=== PATIENT | female | born 1990 | race Caucasian/White ===

== ENCOUNTER 2017-01-01 19:26 | Inpatient (IN) | payer OTHER ==
[2017-01-01] MEDS ORDERED: METHYLERGONOVINE 0.2 MG/ML 1 ML AMP IM PRN (19:50)
[2017-01-01] MEDS ORDERED: LIDOCAINE 1% (PF) 10 MG/ML (30 ML SDV) SQ PRN (19:50)
[2017-01-01] MEDS ORDERED: TERBUTALINE 1 MG/ML VIAL SQ PRN (19:50)
[2017-01-01] MEDS ORDERED: OXYTOCIN 10 UNIT/ML 1 ML VIAL IM PRN (19:50)
[2017-01-01] MEDS ORDERED: CARBOPROST TROMETHAMINE 250 MCG/ML 1 ML AMP IM PRN (19:50)
[2017-01-01] MEDS: LACTATED RINGERS 1,000 ML IV SCH ×3 (20:15→21:31)
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
[2017-01-01 20:34] LABS: Basophils # (A) 0.1 k/uL (0-0.2); Basophils % (A) 0 %; CH 31.6; CHCM 34.5; Eosinophils # (A) 0.1 k/uL (0-0.7); Eosinophils % (A) 1 %; HCT 41.7 % (34.0-46.0); HDW 3.01; HGB 13.7 gm/dL (11.4-16.0); Luc # (Auto) 0.21; Luc % (Auto) 1; Lymphocytes # (A) 1.8 k/uL (1.0-4.8); Lymphocytes % (A) 9 %; MCH 30.3 pg (25.0-35.0); MCHC 32.8 g/dL (31.0-37.0); MCV 92.2 fL (80.0-100.0); Mean Platelet Volume 8.8; Monocytes # (A) 0.9 k/uL (0-1.0); Monocytes % (A) 4 %; Neutrophils # (A) 16.3 k/uL (1.3-7.7); Neutrophils % (A) 84 %; RBC 4.53 m/uL (3.80-5.40); RDW 14.1 % (11.5-15.5); WBC 19.4 k/uL (3.8-10.6); WBC (Perox) 19.72
[2017-01-01] MEDS ORDERED: fentaNYL (PF) 50 MCG/ML 5 ML AMP ONE (20:41)
[2017-01-01] MEDS ORDERED: BUPIVACAINE (PF) 0.25% 30 ML VIAL ONE (20:41)
[2017-01-01] MEDS ORDERED: SODIUM CHLORIDE 0.9% 100 ML BAG ONE (20:41)
[2017-01-01 20:43] VITALS: BMI 31.4
[2017-01-01] MEDS ORDERED: BUPIVACAINE (PF) 0.25% 25 ML, fentaNYL (PF) 200 MCG in SODIUM CHLORIDE 0.9% 71 ML EPIDURAL ONE (21:10)
--- NOTE | 2017-01-02 03:04 | P.PROBDLV ---
Vaginal Delivery Note - . Vaginal Delivery Note: The patient slowly progressed to complete dilation. She did receive epidural anesthesia while in labor. Again with artificial rupture membranes, meconium fluid was noted. HEAD CLEANING PORTER was called to delivery. When she reached complete dilation, the 's head delivered across the perineum followed by the anterior shoulder and then she was instructed to stop pushing. Nose and mouth were bulb suctioned at the perineum and then with one further push the remainder the easily delivered and was placed on mother's abdomen. Cord was clamped and cut immediately and was taken to warmer for evaluation. He was assessed immediately by special care nursing staff and brought to special care nursery for further evaluation due to pale color. He was making some efforts to cry at that time. A viable male infant is noted with scores of 7 at 1 minute 7 at 5 minutes and 8 at 10 minutes. Infant weight is 6 pounds 13.3 ounces. Placenta delivered shortly thereafter, intact, with a three -vessel cord. Bladder was drained with a straight cath. Uterus did slowly contract down after oxytocin was given and uterine massage was carried out. Several clots were removed with a gloved hand. Inspection of the perineum revealed a small secondary perineal laceration. This area was anesthetized with 1% lidocaine and then sutured with 3-0 Vicryl suture in a running locked fashion. There were noted to be bilateral periurethral abrasions that were noted to be hemostatic. Estimated blood loss is approximately 200 mL's. Mother is in stable condition and baby is in the nursery being evaluated at this time.
[2017-01-02] MEDS ORDERED: ZOLPIDEM 5 MG TAB PO PRN (03:14)
[2017-01-02] MEDS ORDERED: HYDROCORTISONE 2.5% RECTAL CREAM 30 GM TUBE RECTAL PRN (03:14)
[2017-01-02] MEDS ORDERED: diphenhydrAMINE 50 MG/ML 1 ML VIAL IVP PRN ×2 (03:14)
[2017-01-02] MEDS ORDERED: ACETAMINOPHEN TAB 325 MG TAB PO PRN (03:14)
[2017-01-02] MEDS ORDERED: BENZOCAINE/MENTHOL SPRAY 1 GM/SPRAY AEROSOL TOPICAL PRN (03:14)
[2017-01-02] MEDS ORDERED: Acetaminophen-Codeine 300-30mg TAB PO PRN ×2 (03:14)
[2017-01-02] MEDS ORDERED: LANOLIN CREAM 5 GM TUBE TOPICAL PRN (03:14)
[2017-01-02] MEDS ORDERED: OXYTOCIN 30 UNITS/500 ML NS 30 UNIT in SALINE 1 500ML.BAG IV SCH (03:14)
[2017-01-02] MEDS ORDERED: WITCH HAZEL 1 EACH MED..PAD TOPICAL PRN (03:14)
[2017-01-02] MEDS ORDERED: SIMETHICONE 80 MG CHEWABLE PO PRN (03:14)
[2017-01-02] MEDS ORDERED: diphenhydrAMINE 50 MG CAP PO PRN (03:14)
[2017-01-02] MEDS ORDERED: diphenhydrAMINE 25 MG CAP PO PRN (03:14)
[2017-01-02] MEDS: IBUPROFEN 600 MG TAB PO PRN ×3 (03:33→20:29)
[2017-01-02 07:15] LABS: Basophils % (A) 0 %; CH 31.5; Eosinophils % (A) 0 %; HDW 2.92; Luc # (Auto) 0.27; Luc % (Auto) 1; Lymphocytes # (A) 1.1 k/uL (1.0-4.8); Lymphocytes % (A) 5 %; MCH 31.1 pg (25.0-35.0); MCHC 33.4 g/dL (31.0-37.0); MCV 93.1 fL (80.0-100.0); Mean Platelet Volume 8.5; Monocytes # (A) 0.9 k/uL (0-1.0); Monocytes % (A) 4 %; Neutrophils # (A) 18.5 k/uL (1.3-7.7); Neutrophils % (A) 89 %; RBC 3.44 m/uL (3.80-5.40); RDW 14.2 % (11.5-15.5); WBC 20.9 k/uL (3.8-10.6)
[2017-01-02 07:26] LABS: HGB 10.7 gm/dL (11.4-16.0)
[2017-01-02] MEDS ORDERED: Rhogam IMMUNE GLOBULIN 1,500 UNIT/1 ML IM ONE (13:50)
[2017-01-02] MEDS: SENNOSIDES-DOCUSATE SODIUM 1 EACH TAB PO SCH ×2 (20:29→21:30)
--- NOTE | 2017-01-03 07:32 | P.PNOBGVD ---
Subjective - Subjective Principal diagnosis: day 1 Interval history: Patient is doing very well day 1. She is ambulating, voiding and she is tolerating her diet. She voices no complaints. She is MRSA positive and she is under contact precautions. Baby is in special care nursery at this time and she will therefore stay another day. Her vital signs otherwise stable and she is afebrile. Her heart is regular her lungs are clear and her abdomen is soft. Uterus is firm below the umbilicus and lochia is reported light. Extremities are without pain. Assessment day 1. Plan continue current care. Objective - Latest Vital Signs Latest vital signs: Vital Signs Temp Pulse Resp BP Pulse Ox 01/02/17 23:18 97.9 F 79 14 109/60 99 01/02/17 15:53 97.6 F 71 16 120/72 99 01/02/17 12:00 97.7 F 74 18 112/66 99 01/02/17 08:00 98.5 F 70 16 122/79 99 Intake and Output 01/02/17 01/03/17 01/03/17 22:59 06:59 14:59 Other: # Voids 2
[2017-01-03] MEDS: IBUPROFEN 600 MG TAB PO PRN ×3 (08:01→23:41)
[2017-01-03] MEDS: SENNOSIDES-DOCUSATE SODIUM 1 EACH TAB PO SCH ×2 (08:02→23:42)
--- NOTE | 2017-01-04 07:43 | P.DS ---
Providers Date of admission: 01/01/17 19:46 Expected date of discharge: 01/04/17 Attending physician: Massimo Peña Primary care physician: Stated None Hospital Course: Patient is seen and evaluated. She is doing very well day 2. She requests nothing for pain. We'll plan discharged home later today. She is ambulating, voiding and she is tolerating her diet. Her vital signs are stable and she is afebrile. Heart is regular, lungs clear, extremities without pain. Abdomen is soft uterus is firm lochia is reported light. Assessment day 2. Plan discharged home follow me in 6 weeks. All the questions are answered for her at this time she is stable for discharge at this time. Patient Condition at Discharge: Good Plan - Discharge Summary Discharge Medication List Pnv with Ca,No.72/Iron/FA [ Plus Tablet] 1 each PO DAILY 09/17/16 [ History] Follow up Appointment(s)/Referral(s): Massimo Peña DO [Doctor of Osteopathic Medicine] - 1 Week Activity/Diet/Wound Care/Special Instructions: Pelvic rest, no heavy lifting, limit stairs, limit driving. If any high temperatures, heavy bleeding, or severe pain call my office Discharge Disposition: HOME SELF-CARE
[2017-01-04] MEDS: IBUPROFEN 600 MG TAB PO PRN ×2 (08:17→15:35)
[2017-01-04] MEDS: SENNOSIDES-DOCUSATE SODIUM 1 EACH TAB PO SCH (08:19)
[2017-01-04 17:02] VITALS: BP 125/77; PULSE 78; RESP 18; TEMP 97.7
== END 2017-01-04 18:45 | disposition home or self-care (01) | DRG 775 ==
LOC: FBPOP 19:26 → 4FBP 19:46
PROVIDERS: ADMIT Obstetrics & Gynecology; ATTEND Obstetrics & Gynecology
PROC: 0KQM0ZZ Repair Perineum Muscle, Open Approach (ICD-10-PCS; principal; 2017-01-01)
PROC: 10E0XZZ Delivery of Products of Conception, External Approach (ICD-10-PCS; 2017-01-01)
PROC: 10907ZC Drainage of Amniotic Fluid, Therapeutic from Products of Conception, Via Natural or Artificial Opening (ICD-10-PCS; 2017-01-01)
PROC: 00HU33Z Insertion of Infusion Device into Spinal Canal, Percutaneous Approach (ICD-10-PCS; 2017-01-01)
PROC: 3E0R3CZ (ICD-10-PCS; 2017-01-01)
DX: O77.0 Labor and delivery complicated by meconium in amniotic fluid (principal); O70.1 Second degree perineal laceration during delivery; O71.82 Other specified trauma to perineum and vulva; Z37.0 Single live birth; Z86.14 Personal history of Methicillin resistant Staphylococcus aureus infection; Z3A.40 40 weeks gestation of pregnancy; Z86.001 Personal history of in-situ neoplasm of cervix uteri; Z88.2 Allergy status to sulfonamides
CPT/HCPCS: 76815; 76819; 85025; 85461; 88307

== ENCOUNTER → 2017-01-01 | Outpatient (CLI) | payer OTHER ==
--- NOTE | 2017-01-01 19:54 | US ---
EXAMINATION TYPE: US OB BPP wo non-stress DATE OF EXAM: 01/01/2017 7:14 PM COMPARISON: NONE CLINICAL HISTORY: LOW GEE. EXAM PERFORMED: Transabdominal (TA) BPP PARAMETERS: PRESENTATION: Cephalic LIE: Longitudinal?? HEART RATE: 140bpm RHYTHM: Normal GEE: 3.4 DIAPHRAGM IMAGED: Yes BPP SCORIN. Breathin (1 episode of breathing of 30 second duration in 30 minutes of scanning time) 2. Movement: 2 (at least 2 discrete body movements in 30 minutes) 3. Tone: 2 (1 episode of active flexion/extension of limb) 4. GEE: 0 (GEE index > 5cm) TOTAL SCORE: 4 / 8 TECHNOLOGIST IMPRESSION: Low GEE and no episode of breathing are visualized during this exam. Patient was taken to Mother [facility] at time of exam Biophysical profile score is 4 out of 8 with absent breathing movements and oligohydramnios.
--- NOTE | 2017-01-01 20:12 | US ---
EXAMINATION TYPE: US OB limited DATE OF EXAM: 01/01/2017 6:21 PM COMPARISON: NONE CLINICAL HISTORY: O48.0 Post Dates. EXAM PERFORMED: Transabdominal (TA) GESTATIONAL AGE / DATING Physician Established: (40 weeks/2 days) EDC: 12/30/2016 No growth performed on today?s study per ordering physician GEE: 3.7 cm HEART RATE: 127 bpm RHYTHM: Normal TECHNOLOGIST IMPRESSION: GEE is low at 3.7cm. Paged field crop harvest contractor Dr at time of exam to give preliminary results. Patient taken to Mother Baby at end of exam IMPRESSION: This limited exam shows an amniotic fluid index of 4 cm which is below normal and consis tent with oligohydramnios.
== END | disposition home or self-care (01) ==
LOC: RADUSMAIN 17:42
PROVIDERS: ATTEND Obstetrics & Gynecology
DX: O41.02X0 Oligohydramnios, second trimester, not applicable or unspecified (principal); O36.8120 Decreased fetal movements, second trimester, not applicable or unspecified; Z3A.40 40 weeks gestation of pregnancy
CPT/HCPCS: 76815; 76819

== ENCOUNTER 2020-08-02 16:21 | Emergency (ER) | payer OTHER ==
[2020-08-02 16:34] VITALS: BP 122/86; PULSE 86; RESP 18; TEMP 98.4
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
== END 2020-08-02 18:33 | disposition home or self-care (01) ==
LOC: EC 16:21
DX: S40.022A Contusion of left upper arm, initial encounter (principal); Z88.1 Allergy status to other antibiotic agents; Z88.2 Allergy status to sulfonamides; V86.55XA Driver of 3- or 4- wheeled all-terrain vehicle (ATV) injured in nontraffic accident, initial encounter
CPT/HCPCS: 71046; 99283

== ENCOUNTER 2020-10-23 17:28 | Emergency (ER) | payer OTHER ==
[2020-10-23 17:47] VITALS: RESP 18
[2020-10-23] MEDS ORDERED: ACETAMINOPHEN TAB 500 MG TAB PO STA (17:56)
[2020-10-23] MEDS ORDERED: SODIUM CHLORIDE 0.9% 1,000 ML IV STA (18:00)
[2020-10-23 18:21] LABS: Appearance,Urine Turbid (Clear); Bilirubin,Urine Negative (Negative); Blood,Urine Small (Negative); Color,Urine Yellow; Glucose,Urine (UA) Negative (Negative); Ketones,Urine Negative (Negative); Leukocyte Esterase,Urine Large (Negative); Mucus,Urine Rare /hpf; Nitrite,Urine Negative (Negative); PH, Urine 7.5 (5.0-8.0); Protein,Urine 2+ (Negative); RBC,Urine <1 /hpf (0-5); Specific Gravity,Urine 1.019 (1.001-1.035); Squamous Epithelial Cell,Urine <1 /hpf (0-4); Urobilinogen,Urine <2.0 mg/dL (<2.0); WBC,Urine 2 /hpf (0-5)
[2020-10-23 18:34] LABS: Basophils % (A) 0 %; Eosinophils # (A) 0.1 k/uL (0-0.7); Eosinophils % (A) 1 %; HCT 40.3 % (34.0-46.0); HGB 13.4 gm/dL (11.4-16.0); Lymphocytes # (A) 1.3 k/uL (1.0-4.8); Lymphocytes % (A) 12 %; MCH 30.8 pg (25.0-35.0); MCHC 33.2 g/dL (31.0-37.0); MCV 92.9 fL (80.0-100.0); Mean Platelet Volume 7.2; Monocytes # (A) 0.7 k/uL (0-1.0); Monocytes % (A) 6 %; Neutrophils % (A) 81 %; Platelet Count 204 k/uL (150-450); RBC 4.34 m/uL (3.80-5.40); RDW 12.5 % (11.5-15.5); WBC 11.1 k/uL (3.8-10.6)
[2020-10-23 18:44] LABS: ALT 15 U/L (4-34); AST 26 U/L (14-36); African American GFR (CKD) >90 (>60 ml/min/1.73 sqM); Albumin 4.5 g/dL (3.5-5.0); Alkaline Phosphatase 72 U/L (38-126); Anion Gap 10 mmol/L; Blood Urea Nitrogen 11 mg/dL (7-17); Calcium 9.5 mg/dL (8.4-10.2); Carbon Dioxide 23 mmol/L (22-30); Chloride 99 mmol/L (98-107); Glucose 101 mg/dL (74-99); Non-African American GFR(CKD) >90 (>60 ml/min/1.73 sqM); Potassium 3.9 mmol/L (3.5-5.1); Sodium 132 mmol/L (137-145); Total Bilirubin 0.9 mg/dL (0.2-1.3); Total Protein 7.8 g/dL (6.3-8.2)
[2020-10-23 18:49] VITALS: BP 115/69; PULSE 92
[2020-10-23 19:05] VITALS: TEMP 100.1
--- NOTE | 2020-10-23 19:07 | ED ---
Fever HPI - General Chief Complaint: Fever Stated Complaint: Bilateral Leg pain Time Seen by Provider: 10/23/20 17:40 Source: patient Mode of arrival: ambulatory Limitations: no limitations - History of Present Illness Initial Comments: 29-year-old female presenting to emergency Department with chief complaint of generalized body aches. Patient states the symptoms began yesterday. States that she is also developed a fever today. She does report associated chills but denies any nausea vomiting diarrhea. She does report dysuria but no increased urgency or frequency. States her urinary symptoms began about one week ago she was diagnosed with a UTI in an urgent care but due to a pharmaceutical air, she did not receive her antibiotics until yesterday. States she is so far taken 2 doses of Macrobid. She continues to report urinary symptoms but denies any vaginal symptoms. Denies any chance of . Denies hematuria, hematochezia or melena. Denies any chest pain, shortness of breath or cough. She doesn't know she has been exposed to anybody who tested positive for Coumadin. - Related Data Home Medications Medication Instructions Recorded Confirmed Pnv,Calcium 72/Iron/Folic Acid 1 each PO DAILY 09/17/16 01/01/17 [ Plus Tablet] Allergies Allergy/AdvReac Type Severity Reaction Status Date / Time sulfamethoxazole Allergy Unknown Verified 10/23/20 17:47 [From ] Childhood trimethoprim [From ] Allergy Unknown Verified 10/23/20 17:47 Childhood Review of Systems ROS Statement: Those systems with pertinent positive or pertinent negative responses have been documented in the HPI. ROS Other: All systems not noted in ROS Statement are negative. Past Medical History Past Medical History: No Reported History History of Any Multi-Drug Resistant Organisms: MRSA Date of last positivie culture/infection: 05/2016 MDRO Source:: right arm pit Additional Past Surgical History / Comment(s): LEEP procedure December 2014, Past Psychological History: No Psychological Hx Reported Smoking Status: Never smoker Past Alcohol Use History: Occasional Past Drug Use History: None Reported - Past Family History Mother Family Medical History: No Reported History General Exam Limitations: no limitations General appearance: alert, in no apparent distress Head exam: Present: atraumatic, normocephalic, normal inspection Eye exam: Present: normal appearance, PERRL, EOMI Pupils: Present: normal accommodation ENT exam: Present: normal exam, normal oropharynx, mucous membranes moist, TM's normal bilaterally, normal external ear exam Neck exam: Present: normal inspection, full ROM. Absent: tenderness Respiratory exam: Present: normal lung sounds bilaterally. Absent: respiratory distress, wheezes, rales Cardiovascular Exam: Present: regular rate, normal rhythm, normal heart sounds. Absent: systolic murmur, diastolic murmur GI/Abdominal exam: Present: soft. Absent: distended, tenderness, guarding, r ebound Extremities exam: Present: normal inspection, full ROM, normal capillary refill. Absent: tenderness, pedal edema, joint swelling, calf tenderness Back exam: Present: normal inspection, full ROM. Absent: tenderness, CVA tenderness (R), CVA tenderness (L), muscle spasm, paraspinal tenderness, vertebral tenderness Neurological exam: Present: alert, oriented X3, normal gait Psychiatric exam: Present: normal affect, normal mood Skin exam: Present: warm, dry, intact, normal color Course Vital Signs 10/23/20 10/23/20 17:41 18:45 Temperature 102.3 F H 101 F H Pulse Rate 110 H 92 Respiratory 18 18 Rate Blood Pressure 139/81 115/69 O2 Sat by Pulse 100 100 Oximetry Medical Decision Making - Medical Decision Making 29-year-old female presenting to the emergency Department with a chief complaint of generalized bodyaches. On initial evaluation, no significant abdominal pain or CVA tenderness. Patient is febrile on arrival. Patient was given IV fluids and Tylenol. CMP reveals mild leukocytosis of 11 K. CMP is unremarkable. UA shows no signs of urinary tract infection. Patient is not . Influenza negative. covid-19 Testing pending. On reevaluation, patient reports improvement of symptoms. Patient was advised to self isolate and take Tylenol if she develops a fever until she received the results of Covid testing. She was advised to follow with primary care physician. She was advised to drink plenty of fluids. Strict return parameters were thoroughly discussed the patient was understanding and agreeable. Case discussed with physician. - Lab Data Result diagrams: 10/23/20 18:10 10/23/20 18:12 Lab Results 10/23/20 10/23/20 10/23/20 Range/Units 17:52 17:53 18:10 WBC 11.1 H (3.8-10.6) k/uL RBC 4.34 (3.80-5.40) m/uL Hgb 13.4 (11.4-16.0) gm/dL Hct 40.3 (34.0-46.0) % MCV 92.9 (80.0-100.0) fL MCH 30.8 (25.0-35.0) pg MCHC 33.2 (31.0-37.0) g/dL RDW 12.5 (11.5-15.5) % Plt Count 204 (150-450) k/uL MPV 7.2 Neutrophils % 81 % Lymphocytes % 12 % Monocytes % 6 % Eosinophils % 1 % Basophils % 0 % Neutrophils # 9.0 H (1.3-7.7) k/uL Lymphocytes # 1.3 (1.0-4.8) k/uL Monocytes # 0.7 (0-1.0) k/uL Eosinophils # 0.1 (0-0.7) k/uL Basophils # 0.0 (0-0.2) k/uL Sodium (137-145) mmol/L Potassium (3.5-5.1) mmol/L Chloride (98-107) mmol/L Carbon Dioxide (22-30) mmol/L Anion Gap mmol/L BUN (7-17) mg/dL Creatinine (0.52-1.04) mg/dL Est GFR (CKD-EPI)AfAm (>60 ml/min/1.73 sqM) Est GFR (CKD-EPI)NonAf (>60 ml/min/1.73 sqM) Glucose (74-99) mg/dL Calcium (8.4-10.2) mg/dL Total Bilirubin (0.2-1.3) mg/dL AST (14-36) U/L ALT (4-34) U/L Alkaline Phosphatase (38-126) U/L Total Protein (6.3-8.2) g/dL Albumin (3.5-5.0) g/dL Urine Color Yellow Urine Appearance Turbid H (Clear) Urine pH 7.5 (5.0-8.0) Ur Specific Thayer 1.019 (1.001-1.035) Urine Protein 2+ H (Negative) Urine Glucose (UA) Negative (Negative) Urine Ketones Negative (Negative) Urine Blood Small H (Negative) Urine Nitrite Negative (Negative) Urine Bilirubin Negative (Negative) Urine Urobilinogen <2.0 (<2.0) mg/dL Ur Leukocyte Esterase Large H (Negative) Urine RBC <1 (0-5) /hpf Urine WBC 2 (0-5) /hpf Ur Squamous Epith Cells <1 (0-4) /hpf Urine Mucus Rare H (None) /hpf Urine HCG, Qual Not Detected (Not Detectd) Influenza Type A RNA (Not Detectd) Influenza Type B (PCR) (Not Detectd) 10/23/20 10/23/20 Range/Units 18:12 18:12 WBC (3.8-10.6) k/uL RBC (3.80-5.40) m/uL Hgb (11.4-16.0) gm/dL Hct (34.0-46.0) % MCV (80.0-100.0) fL MCH (25.0-35.0) pg MCHC (31.0-37.0) g/dL RDW (11.5-15.5) % Plt Count (150-450) k/uL MPV Neutrophils % % Lymphocytes % % Monocytes % % Eosinophils % % Basophils % % Neutrophils # (1.3-7.7) k/uL Lymphocytes # (1.0-4.8) k/uL Monocytes # (0-1.0) k/uL Eosinophils # (0-0.7) k/uL Basophils # (0-0.2) k/uL Sodium 132 L (137-145) mmol/L Potassium 3.9 (3.5-5.1) mmol/L Chloride 99 (98-107) mmol/L Carbon Dioxide 23 (22-30) mmol/L Anion Gap 10 mmol/L BUN 11 (7-17) mg/dL Creatinine 0.74 (0.52-1.04) mg/dL Est GFR (CKD-EPI)AfAm >90 (>60 ml/min/1.73 sqM) Est GFR (CKD-EPI)NonAf >90 (>60 ml/min/1.73 sqM) Glucose 101 H (74-99) mg/dL Calcium 9.5 (8.4-10.2) mg/dL Total Bilirubin 0.9 (0.2-1.3) mg/dL AST 26 (14-36) U/L ALT 15 (4-34) U/L Alkaline Phosphatase 72 (38-126) U/L Total Protein 7.8 (6.3-8.2) g/dL Albumin 4.5 (3.5-5.0) g/dL Urine Color Urine Appearance (Clear) Urine pH (5.0-8.0) Ur Specific Thayer (1.001-1.035) Urine Protein (Negative) Urine Glucose (UA) (Negative) Urine Ketones (Negative) Urine Blood (Negative) Urine Nitrite (Negative) Urine Bilirubin (Negative) Urine Urobilinogen (<2.0) mg/dL Ur Leukocyte Esterase (Negative) Urine RBC (0-5) /hpf Urine WBC (0-5) /hpf Ur Squamous Epith Cells (0-4) /hpf Urine Mucus (None) /hpf Urine HCG, Qual (Not Detectd) Influenza Type A RNA Not Detected (Not Detectd) Influenza Type B (PCR) Not Detected (Not Detectd) Disposition Clinical Impression: Fever, Generalized body aches Disposition: HOME SELF-CARE Condition: Stable Instructions (If sedation given, give patient instructions): Fever in Adults (ED) Additional Instructions: Self-isolation until he received the results of Covid testing. Take Tylenol for the fever. Return to emergency department if symptoms worsen. Is patient prescribed a controlled substance at d/c from ED?: No Referrals: None,Stated [Primary Care Provider] - 1-2 days Time of Disposition: 19:07
== END 2020-10-23 19:20 | disposition home or self-care (01) ==
LOC: EC 17:28
DX: R50.9 Fever, unspecified (principal); R52 Pain, unspecified; R30.0 Dysuria; Z88.1 Allergy status to other antibiotic agents; Z88.2 Allergy status to sulfonamides; Z86.14 Personal history of Methicillin resistant Staphylococcus aureus infection; Z20.828 Contact with and (suspected) exposure to other viral communicable diseases
CPT/HCPCS: 36415; 80053; 85025; 81001; 81025; 87502; 99283; 96360; U0003

== ENCOUNTER → 2023-05-29 | Outpatient (CLI) | payer OTHER ==
--- NOTE | 2023-05-29 13:07 | US ---
EXAMINATION TYPE: US pelvic complete DATE OF EXAM: 05/29/2023 COMPARISON: NONE CLINICAL INDICATION: Female, 32 years old with history of N92.6 IRREGULAR MENSTRUATION, UNSPECIFIED; Occasional heavy periods, patient states she has not been able to get in the past couple errol [id number] TECHNIQUE: . Transabdominal sonographic images of the pelvis were acquired. Date of LMP: 05/25/2023 EXAM MEASUREMENTS: Uterus: 7.6 x 5.1 x 7.3 cm Endometrial Stripe: 0.8 cm Right Ovary: 2.9 x 1.7 x 2.0 cm Left Ovary: 2.9 x 1.7 x 1.5 cm 1. Uterus: anteverted 2. Endometrium: thickened for patient's LMP 3. Right Ovary: multiple follicles 4. Left Ovary: multiple follicles 5. Bilateral Adnexa: wnl 6. Posterior cul-de-sac: wnl IMPRESSION: Mildly thickened endometrium. Bilateral ovarian follicles
[2023-05-30 01:02] LABS: T4, Free (Free Thyroxine) 1.02 ng/dL (0.80-1.80)
== END | disposition home or self-care (01) ==
LOC: RADUSWWP 12:25
PROVIDERS: ATTEND Obstetrics & Gynecology
DX: Z13.29 Encounter for screening for other suspected endocrine disorder (principal); N92.6 Irregular menstruation, unspecified; N83.02 Follicular cyst of left ovary; N83.01 Follicular cyst of right ovary; R93.89 Abnormal findings on diagnostic imaging of other specified body structures
CPT/HCPCS: 76856; 84439; 84443

== ENCOUNTER 2023-11-27 16:37 | Emergency (ER) | payer OTHER ==
--- NOTE | 2023-11-27 16:49 | ED ---
Abdominal Pain HPI - General Source: patient, RN notes reviewed Mode of arrival: ambulatory Limitations: no limitations <Norma Go - Last Filed: 11/27/23 16:48> <Efrain Hall - Last Filed: 11/27/23 20:15> - General Chief Complaint: Abdominal Pain Stated Complaint: kidney stone Time Seen by Provider: 11/27/23 16:48 - History of Present Illness Initial Comments: Patient is a 33-year-old female presented ER with a chief complaint of left- sided abdominal and flank pain. Patient states her symptoms started on Saturday. Patient was recently seen at urgent care for similar complaint and received pain medication, with relief. Patient denies any fevers, chills, night sweats. (Norma Go) 33-year-old female presents to the ED with chief complaint of flank pain. Patient states the past 4 days. Patient states pain is intermittent. Patient notes associated dysuria, urgency, frequency, hematuria. Patient notes that she is also on her period. For this, patient went to an urgent care who advised her to present to the ED to rule out any stone. Denies changes in bowel habits. Denies vaginal discharge or concern for STDs. No chest pain or shortness of breath. No other complaints. (Efrain Hall) - Related Data Home Medications Medication Instructions Recorded Confirmed Pnv,Calcium 72/Iron/Folic Acid 1 each PO DAILY 09/17/16 01/01/17 [ Plus Tablet] Allergies Allergy/AdvReac Type Severity Reaction Status Date / Time sulfamethoxazole Allergy Unknown Verified 11/27/23 16:46 [From ] Childhood trimethoprim [From ] Allergy Unknown Verified 11/27/23 16:46 Childhood Review of Systems ROS Other: All systems not noted in ROS Statement are negative. <Norma Go - Last Filed: 11/27/23 16:48> ROS Other: All systems not noted in ROS Statement are negative. <Efrain Hall - Last Filed: 11/27/23 20:15> ROS Statement: Those systems with pertinent positive or pertinent negative responses have been documented in the HPI. Past Medical History Past Medical History: No Reported History History of Any Multi-Drug Resistant Organisms: MRSA Date of last positivie culture/infection: 05/2016 MDRO Source:: right arm pit Additional Past Surgical History / Comment(s): LEEP procedure December 2014, Past Psychological History: No Psychological Hx Reported Smoking Status: Never smoker Past Alcohol Use History: Occasional Past Drug Use History: None Reported - Past Family History Mother Family Medical History: No Reported History <Norma Go - Last Filed: 11/27/23 16:48> General Exam Limitations: no limitations <Norma Go - Last Filed: 11/27/23 16:48> General appearance: alert, in no apparent distress Eye exam: Present: normal appearance Neck exam: Present: normal inspection Respiratory exam: Present: normal lung sounds bilaterally Cardiovascular Exam: Present: regular rate, normal rhythm GI/Abdominal exam: Present: soft (Diffuse Abdominal tenderness to palpation.) Neurological exam: Present: alert, oriented X3 Skin exam: Present: warm, dry <Efrain Hall - Last Filed: 11/27/23 20:15> - General Exam Comments Initial Comments: Visual Physical Exam Vital signs reviewed General: Well-appearing, nontoxic, no acute distress. Head: Normocephalic, atraumatic Eyes: PERRLA, EOMI ENT: Airway patent Chest: Nonlabored breathing Skin: No visual rash, normal skin tone Neuro: Alert and oriented 3 Musculoskeletal: No gross abnormalities (Norma Go) Course Vital Signs 11/27/23 16:43 Pulse Rate 114 H Respiratory 18 Rate Blood Pressure 133/90 O2 Sat by Pulse 99 Oximetry Medical Decision Making <Norma Go - Last Filed: 11/27/23 16:48> - Lab Data Result diagrams: 11/27/23 17:44 11/27/23 17:44 <Efrain Hall - Last Filed: 11/27/23 20:15> - Medical Decision Making I performed the quick note portion of the exam. Electronically signed by Norma Go PA-C (Norma Go) Was pt. sent in by a medical professional or institution ([facility], [facility], urgent care, hospital, or fdc...) When possible be specific @ -No Did you speak to anyone other than the patient for history (EMS, parent, family, police, friend...)? What history was obtained from this source @ -No Did you review nursing and triage notes (agree or disagree)? Why? @ -I reviewed and agree with nursing and triage notes Were old charts reviewed (outside hosp., previous admission, EMS record, old EKG, old radiological studies, urgent care reports/EKG's, fdc records)? Report findings @ -No old charts were reviewed Differential Diagnosis (chest pain, altered mental status, abdominal pain women, abdominal pain men, vaginal bleeding, weakness, fever, dyspnea, syncope, headache, dizziness, GI bleed, back pain, seizure, CVA, palpatations, mental health, musculoskeletal)? @ -Differential Abdominal Pain Women: Appendicitis, Cholecystitis, diverticulosis, ischemic bowel, pancreatitis, hepatitis, UTI, gastroenteritis, AAA, incarcerated hernia, bowel obstruction, constipation, inflammatory bowel, hepatitis, peptic ulcer disease, splenic infarction, perforated viscus, vulvitis, ovarian torsion, PID, kidney stone, placenta abruption, this is not meant to be an all-inclusive list EKG interpreted by me (3pts min.). @ -None X-rays interpreted by me (1pt min.). @ -None done CT interpreted by me (1pt min.). @ -CT of the abdomen and pelvis without contrast interpreted by me show no evidence of acute finding. U/S interpreted by me (1pt. min.). @ -None done What testing was considered but not performed or refused? (CT, X-rays, U/S, labs)? Why? @ -None What meds were considered but not given or refused? Why? @ -None Did you discuss the management of the patient with other professionals (professionals i.e. , PA, [facility], lab, RT, psych nurse, psychiatric social worker, director of transportation, teacher, special service officer, welfare case worker)? Give summary @ -No Was smoking cessation discussed for >3mins.? @ -No Was critical care preformed (if so, how long)? @ -No Were there social determinants of health that impacted care today? How? (Homelessness, low income, unemployed, alcoholism, drug addiction, transportation, low edu. Level, literacy, decrease access to med. care, group home, rehab)? @ -No Was there de-escalation of care discussed even if they declined (Discuss DNR or withdrawal of care, Hospice)? DNR status @ -No What co-morbidities impacted this encounter? (DM, HTN, Smoking, COPD, CAD, Cancer, CVA, ARF, Chemo, Hep., AIDS, mental health diagnosis, sleep apnea, morbid obesity)? @ -None Was patient admitted / discharged? Hospital course, mention meds given and route, prescriptions, significant lab abnormalities, going to OR and other pertinent info. @ -Discharged 33-year-old female presenting to the ED with a chief complaint of flank pain intermittently for the past 5 days with some complaints of dysuria, urgency, frequency, hematuria. Labs including CBC and CMP unremarkable. Urine does show greater than 182 red blood cells however no significant evidence of infection. Computed tomography scan revealed no acute process. At this time, symptoms likely due to recently passed stone. At this time, pain well controlled. Vital signs stable and afebrile. Discharged home in stable condition. Advised follow-up with her PCP. Discussed return precautions with patient who verbalizes agreement. Undiagnosed new problem with uncertain prognosis? @ -No Drug Therapy requiring intensive monitoring for toxicity (Heparin, Nitro, Insulin, Cardizem)? @ -No Were any procedures done? @ -No Diagnosis/symptom? @ -Flank pain Acute, or Chronic, or Acute on Chronic? @ -Acute Uncomplicated (without systemic symptoms) or Complicated (systemic symptoms)? @ -Uncomplicated Side effects of treatment? @ -No Exacerbation, Progression, or Severe Exacerbation? @ -No Poses a threat to life or bodily function? How? (Chest pain, [place], [place], pneumonia, PE, COPD, DKA, ARF, appy, cholecystitis, CVA, Diverticulitis, Homicidal, Imani cidal, threat to staff... and all critical care pts) @ -No (Efrain Hall) - Lab Data Lab Results 11/27/23 11/27/23 11/27/23 Range/Units 17:13 17:44 17:44 WBC 10.3 (3.8-10.6) k/uL RBC 4.08 (3.80-5.40) m/uL Hgb 12.3 (11.4-16.0) gm/dL Hct 36.9 (34.0-46.0) % MCV 90.5 (80.0-100.0) fL MCH 30.3 (25.0-35.0) pg MCHC 33.4 (31.0-37.0) g/dL RDW 12.9 (11.5-15.5) % Plt Count 191 (150-450) k/uL MPV 8.1 Sodium 137 (137-145) mmol/L Potassium 4.3 (3.5-5.1) mmol/L Chloride 103 (98-107) mmol/L Carbon Dioxide 24 (22-30) mmol/L Anion Gap 10 mmol/L BUN 21 H (7-17) mg/dL Creatinine 0.93 (0.52-1.04) mg/dL Est GFR (CKD-EPI)AfAm >90 (>60 ml/min/1.73 sqM) Est GFR (CKD-EPI)NonAf 82 (>60 ml/min/1.73 sqM) Glucose 106 H (74-99) mg/dL Plasma Lactic Acid [place] (0.7-2.0) mmol/L Calcium 9.7 (8.4-10.2) mg/dL Total Bilirubin 0.4 (0.2-1.3) mg/dL AST 26 (14-36) U/L ALT 18 (4-34) U/L Alkaline Phosphatase 51 (38-126) U/L Total Protein 7.6 (6.3-8.2) g/dL Albumin 4.6 (3.5-5.0) g/dL Urine Color Yellow Urine Appearance Cloudy H (Clear) Urine pH 5.5 (5.0-8.0) Ur Specific [place] 1.038 H (1.001-1.035) Urine Protein 1+ H (Negative) Urine Glucose (UA) Negative (Negative) Urine Ketones Negative (Negative) Urine Blood Large H (Negative) Urine Nitrite Negative (Negative) Urine Bilirubin Negative (Negative) Urine Urobilinogen <2.0 (<2.0) mg/dL Ur Leukocyte Esterase Negative (Negative) Urine RBC >182 H (0-5) /hpf Urine WBC 7 H (0-5) /hpf Ur Squamous Epith Cells 11 H (0-4) /hpf Calcium Oxalate Crystal Moderate H (None) /hpf Urine Mucus Moderate H (None) /hpf 11/27/23 Range/Units 17:44 WBC (3.8-10.6) k/uL RBC (3.80-5.40) m/uL Hgb (11.4-16.0) gm/dL Hct (34.0-46.0) % MCV (80.0-100.0) fL MCH (25.0-35.0) pg MCHC (31.0-37.0) g/dL RDW (11.5-15.5) % Plt Count (150-450) k/uL MPV Sodium (137-145) mmol/L Potassium (3.5-5.1) mmol/L Chloride (98-107) mmol/L Carbon Dioxide (22-30) mmol/L Anion Gap mmol/L BUN (7-17) mg/dL Creatinine (0.52-1.04) mg/dL Est GFR (CKD-EPI)AfAm (>60 ml/min/1.73 sqM) Est GFR (CKD-EPI)NonAf (>60 ml/min/1.73 sqM) Glucose (74-99) mg/dL Plasma Lactic Acid [place] 1.1 (0.7-2.0) mmol/L Calcium (8.4-10.2) mg/dL Total Bilirubin (0.2-1.3) mg/dL AST (14-36) U/L ALT (4-34) U/L Alkaline Phosphatase (38-126) U/L Total Protein (6.3-8.2) g/dL Albumin (3.5-5.0) g/dL Urine Color Urine Appearance (Clear) Urine pH (5.0-8.0) Ur Specific [place] (1.001-1.035) Urine Protein (Negative) Urine Glucose (UA) (Negative) Urine Ketones (Negative) Urine Blood (Negative) Urine Nitrite (Negative) Urine Bilirubin (Negative) Urine Urobilinogen (<2.0) mg/dL Ur Leukocyte Esterase (Negative) Urine RBC (0-5) /hpf Urine WBC (0-5) /hpf Ur Squamous Epith Cells (0-4) /hpf Calcium Oxalate Crystal (None) /hpf Urine Mucus (None) /hpf Disposition <Norma Go - Last Filed: 11/27/23 16:48> Is patient prescribed a controlled substance at d/c from ED?: No Time of Disposition: 20:15 <Efrain Hall - Last Filed: 11/27/23 20:15> Clinical Impression: Flank pain Disposition: HOME SELF-CARE Condition: Good Additional Instructions: Please return to the Emergency Department if symptoms worsen or any other concerns. Please follow up with your PCP. Referrals: None,Stated [Primary Care Provider] - 1-2 days
[2023-11-27 16:50] VITALS: BP 133/90; PULSE 114; RESP 18
[2023-11-27 17:56] LABS: HCT 36.9 % (34.0-46.0); HGB 12.3 gm/dL (11.4-16.0); MCH 30.3 pg (25.0-35.0); MCHC 33.4 g/dL (31.0-37.0); MCV 90.5 fL (80.0-100.0); Mean Platelet Volume 8.1; Platelet Count 191 k/uL (150-450); RBC 4.08 m/uL (3.80-5.40); RDW 12.9 % (11.5-15.5); WBC 10.3 k/uL (3.8-10.6)
[2023-11-27 18:05] LABS: ALT 18 U/L (4-34); AST 26 U/L (14-36); African American GFR (CKD) >90 (>60 ml/min/1.73 sqM); Albumin 4.6 g/dL (3.5-5.0); Alkaline Phosphatase 51 U/L (38-126); Anion Gap 10 mmol/L; Blood Urea Nitrogen 21 mg/dL (7-17); Calcium 9.7 mg/dL (8.4-10.2); Carbon Dioxide 24 mmol/L (22-30); Chloride 103 mmol/L (98-107); Glucose 106 mg/dL (74-99); Non-African American GFR(CKD) 82 (>60 ml/min/1.73 sqM); Potassium 4.3 mmol/L (3.5-5.1); Sodium 137 mmol/L (137-145); Total Bilirubin 0.4 mg/dL (0.2-1.3); Total Protein 7.6 g/dL (6.3-8.2)
[2023-11-27 18:06] LABS: Color,Urine Yellow
--- NOTE | 2023-11-27 18:09 | CT ---
EXAMINATION TYPE: CT abdomen pelvis wo con CT DLP: 328.4 mGycm, Automated exposure control for dose reduction was used. DATE OF EXAM: 11/27/2023 6:00 PM COMPARISON: None. CLINICAL INDICATION:Female, 33 years old with history of flank pain; f. TECHNIQUE: Axial CT of the abdomen and pelvis. Sagittal and coronal reformats were created on a [employer] workstation. Contrast used:(none if empty) Oral contrast used: (none if empty) FINDINGS: LOWER CHEST: Unremarkable ABDOMEN LIVER: Unremarkable GALLBLADDER AND BILE DUCTS: Unremarkable. PANCREAS: Unremarkable. SPLEEN: Unremarkable. ADRENAL GLANDS: Unremarkable. KIDNEYS AND URETERS: No evidence of hydronephrosis or renal calculus. The ureters are unremarkable. PELVIS BLADDER: Unremarkable REPRODUCTIVE: Unremarkable. ABDOMEN & PELVIS STOMACH AND BOWEL: Stomach and duodenum are unremarkable. No evidence of bowel obstruction. PERITONEUM/RETROPERITONEUM: No evidence of pneumoperitoneum or free fluid. VASCULATURE: No evidence of aortic aneurysm. MUSCULOSKELETAL: No acute osseous abnormalities LYMPH NODES: No gross evidence for lymphadenopathy. SOFT TISSUE/ABDOMINAL WALL: Unremarkable IMPRESSION: No acute process or evidence of renal obstruction.
[2023-11-27 18:10] LABS: Appearance,Urine Cloudy (Clear); Bilirubin,Urine Negative (Negative); Blood,Urine Large (Negative); Calcium Oxalate Crystals,Urine Moderate /hpf; Glucose,Urine (UA) Negative (Negative); Ketones,Urine Negative (Negative); Leukocyte Esterase,Urine Negative (Negative); Mucus,Urine Moderate /hpf; Nitrite,Urine Negative (Negative); PH, Urine 5.5 (5.0-8.0); Protein,Urine 1+ (Negative); RBC,Urine >182 /hpf (0-5); Specific Gravity,Urine 1.038 (1.001-1.035); Squamous Epithelial Cell,Urine 11 /hpf (0-4); Urobilinogen,Urine <2.0 mg/dL (<2.0); WBC,Urine 7 /hpf (0-5)
[2023-11-27] MEDS ORDERED: ONDANSETRON 4 MG ODT STARTER PACK 2 TAB BTL PO STA (20:16)
[2023-11-27] MEDS ORDERED: ACET/COD 300 MG/30 MG STARTER PACK 6 TAB BTL PO STA (20:16)
== END 2023-11-27 20:32 | disposition home or self-care (01) ==
LOC: EC 16:37
DX: R10.9 Unspecified abdominal pain (principal); Z88.2 Allergy status to sulfonamides
CPT/HCPCS: 36415; 80053; 83605; 85027; 81001; 74176; 99284; S0119

== ENCOUNTER → 2024-08-20 | Outpatient (CLI) | payer OTHER ==
[2024-08-20 15:52] LABS: HCG,Quantitative Serum <3.0 mIU/mL (0.0-6.0)
== END | disposition home or self-care (01) ==
LOC: LABWHC1 09:30
PROVIDERS: ATTEND Obstetrics & Gynecology
DX: N93.9 Abnormal uterine and vaginal bleeding, unspecified (principal)
CPT/HCPCS: 36415; 84443; 84702

== ENCOUNTER → 2024-09-01 | Outpatient (CLI) | payer OTHER ==
[2024-09-01 20:18] LABS: T4, Free (Free Thyroxine) 0.75 ng/dL (0.80-1.80)
== END | disposition home or self-care (01) ==
LOC: LABWHC1 16:00
PROVIDERS: ATTEND Obstetrics & Gynecology
DX: R94.6 Abnormal results of thyroid function studies (principal)
CPT/HCPCS: 36415; 84439; 84443; 86800

== ENCOUNTER → 2024-12-10 | Outpatient (CLI) | payer OTHER ==
[2024-12-10 19:32] LABS: T4, Free (Free Thyroxine) 0.76 ng/dL (0.80-1.80)
== END | disposition home or self-care (01) ==
LOC: LABWHC1 14:58
PROVIDERS: ATTEND Obstetrics & Gynecology
DX: E03.9 Hypothyroidism, unspecified (principal)
CPT/HCPCS: 36415; 84439; 84443